=== PATIENT | female | born 1940 | race Caucasian/White ===

== ENCOUNTER → 2016-12-11 | Outpatient (CLI) | payer OTHER ==
--- NOTE | 2016-12-11 13:21 | MA ---
Diagnostic Digital Right Mammogram with CAD History: Follow-up asymmetry. Comparison: June 06, 2016, May 22, 2016, April 26, 2015 and April 14, 2014. Technique: 2 conventional views of the right breast. A true lateral view, off midline cc views by 5 d egrees and 2 spot views.. Images reviewed with iCAD. Breast Density: 2 Findings: A small nodular density in the upper inner right breast persists. It has ill-defined margin s. Although it has not significantly changed in size in 6 months, it is new since 2013 and slightly l arger than 2014.. Impression: Persistent nodule right breast. We will proceed to follow-up ultrasound to try and identi fy the nodule, for further localization and characterization purposes. BI-RADS: Category 0. Additional imaging required..
--- NOTE | 2016-12-11 13:55 | US ---
Right Breast Ultrasound HISTORY: Small irregular nodule upper outer right breast Comparison: Diagnostic mammogram earlier Technique: I first performed a physical examination. This was then followed by high-frequency imaging . Findings: Physical examination of the upper inner right breast is negative. Ultrasound is also negati ve. I do not identify a cyst or correlative solid lesion. Impression: The mammographic nodule is solid. It is new since 2014 and slightly larger than 2015 desp ite the fact that there is little if any change in 6 months. This is suspicious: BI-RADS 4. Recommendation: Stereotactic core biopsy for histologic evaluation. Results and recommendation were discussed with the patient in detail. A message was left with [facility] for Dr. Antonia Gallego at 1:53 pm.
== END ==
LOC: BMCIMAGING 12:15
DX: N63 Unspecified lump in breast (principal)
CPT/HCPCS: 76641; G0206

== ENCOUNTER → 2017-01-15 | Day surgery (SDC) | payer OTHER ==
[~2017-01-15] MED LIST: THROMBIN (RECOMBINANT) 5,000 UNIT VIAL TP ONE
== END | disposition home or self-care (01) ==
LOC: FIMAGING 09:22
PROVIDERS: ATTEND Physician Assistant Medical
PROC: 0HBT3ZX Excision of Right Breast, Percutaneous Approach, Diagnostic (ICD-10-PCS; principal; 2017-01-15)
PROC: BH00ZZZ Plain Radiography of Right Breast (ICD-10-PCS; 2017-01-15)
DX: C50.911 Malignant neoplasm of unspecified site of right female breast (principal); R92.0 Mammographic microcalcification found on diagnostic imaging of breast; Z17.0 Estrogen receptor positive status [ER+]
CPT/HCPCS: G0206